=== PATIENT | male | born 1985 | race Caucasian/White ===

== ENCOUNTER 2016-08-15 19:39 | Emergency (ER) | payer SELFPAY ==
[2016-08-15 19:58] VITALS: BP 116/73
--- NOTE | 2016-08-15 20:23 | RAD ---
Indication: Right forearm injury 2 views of the right forearm demonstrates no fracture. No other bone or joint abnormality. IMPRESSION: No fracture of the right forearm is noted.
--- NOTE | 2016-08-15 20:25 | UC ---
Upper Extremity HPI - HPI Summary HPI Summary: right forearm stepped on by a cow 1 hour prior to arrival - History of Current Complaint Chief Complaint: UCUpperExtremity Stated Complaint: ARM INJURY Time Seen by Provider: 08/15/16 19:54 Hx Obtained From: Patient ?: No Onset/Duration: Sudden Onset, Lasting Hours - 1, Still Present Severity Initially: Mild Severity Currently: Mild Pain Intensity: 5 Pain Scale Used: 0-10 Numeric Location Of Pain: Is Discrete @ - right forearm Character: Aching Aggravating Factor(s): Movement Alleviating Factor(s): Compression, Ice Associated Signs And Symptoms: Positive: Swelling Related History: Dominant Hand Right - Allergies/Home Medications Allergies/Adverse Reactions: Allergies Allergy/AdvReac Type Severity Reaction Status Date / Time Milk Protein Extract Allergy GI Upset Verified 08/15/16 19:58 PMH/Surg Hx/FS Hx/Imm Hx Previously Healthy: Yes Endocrine History Of: Denies: Diabetes, Thyroid Disease Cardiovascular History Of: Denies: Cardiac Disorders, Hypertension Respiratory History Of: Denies: COPD, Asthma GI/ History Of: Denies: Ulcer - Surgical History Surgical History: None - Family History Known Family History: Positive: None Family History: no known cardiovascular issues in family lineage - Social History Occupation: Employed Full-time - [employer] Lives: With Family Alcohol Use: Occasionally Alcohol Amount: 1-2 beers a day Substance Use Type: None Smoking Status (MU): Never Smoked Tobacco - Immunization History Most Recent Tetanus Shot: 09/18 Review of Systems Constitutional: Negative Skin: Other - swelling right fore arm Eyes: Negative ENT: Negative Respiratory: Negative Cardiovascular: Negative Gastrointestinal: Negative Genitourinary: Negative Motor: Negative Neurovascular: Negative Musculoskeletal: Arthralgia - right forearm, Myalgia - right forarm Neurological: Negative Psychological: Negative All Other Systems Reviewed And Are Negative: Yes Physical Exam Triage Information Reviewed: Yes Appearance: Well-Appearing, Well-Nourished, Pain Distress - mild Vital Signs: Initial Vital Signs Temp 98.4 F 08/15/16 19:55 Pulse 70 08/15/16 19:55 Resp 18 08/15/16 19:55 BP 116/73 08/15/16 19:55 Vital Signs Reviewed: Yes Eye Exam: Normal Eyes: Positive: Conjunctiva Clear ENT Exam: Normal ENT: Positive: Normal ENT inspection, Hearing grossly normal, Pharynx normal, TMs normal. Negative: Nasal congestion, Nasal drainage Dental Exam: Normal Neck exam: Normal Neck: Positive: Supple, Nontender, No Lymphadenopathy Respiratory Exam: Normal Respiratory: Positive: Chest non-tender, Lungs clear, Normal breath sounds, No respiratory distress, No accessory muscle use Cardiovascular Exam: Normal Cardiovascular: Positive: RRR, No Murmur, Pulses Normal, Brisk Capillary Refill Musculoskeletal Exam: Normal Musculoskeletal: Positive: Strength Intact, ROM Intact, Edema @ - right forearm Neurological Exam: Normal Neurological: Positive: Alert, Muscle Tone Normal Psychological Exam: Normal Psychological: Positive: Normal Response To Family Skin Exam: Normal Diagnostics - Laboratory Diagnostic Studies Completed/Ordered: x-ray negative for fracture Upper Extremity Course/Dx - Course Course Of Treatment: keshav, ice, elevation, education regarding compartment syndrome, follow with PCP/ortho - Differential Dx/Diagnosis Differential Diagnosis/HQI/PQRI: Contusion, Fracture (Closed), Hematoma, Strain , Sprain Provider Diagnoses: Contusion right fore arm Discharge - Discharge Plan Condition: Stable Disposition: HOME Patient Education Materials: Ibuprofen (By mouth), Contusion in Adults (ED), RICE Therapy (ED), Hematoma (ED) Referrals: Quintin Marcus MD [Primary Care Provider] - Burak Eduardo MD [Medical Doctor] - 3 Days
== END 2016-08-15 20:45 | disposition home or self-care (01) ==
LOC: UCEAST 19:39
DX: S50.11XA Contusion of right forearm, initial encounter (principal); W55.29XA Other contact with cow, initial encounter; Y93.9 Activity, unspecified; Y92.79 Other farm location as the place of occurrence of the external cause
CPT/HCPCS: 99212; G0463